=== PATIENT | female | born 1995 | race Caucasian/White ===

== ENCOUNTER 2018-08-31 01:53 | Emergency (ER) | payer SELFPAY ==
--- NOTE | 2018-08-31 02:32 | ED ---
Complex/Multi-Sys Presentation - HPI Summary HPI Summary: Patient is a 23 y/o F presenting to ED with complaints of dehydration, dizziness , nausea, and SOB. She has been drinking alcohol tonight. Patient's friends, who are present in the room, state that the patient was sober when they dropped her off at 2100 08/30/18. Last drink is reported to have been 2.5 hours ago, patient reported that she drank alcohol by herself. She notes that she has had around 13-14 drinks tonight. Dizziness is characterized as a light-headedness. Patient reports that she was SOB since midnight until 0200, no longer SOB. She denies vomiting, falls, and LOC. Patient had been nauseous earlier but not at present. On triage, pain is denied, nothing is noted to aggravate/alleviate Sx. Home medications and allergies are reviewed. - History Of Current Complaint Chief Complaint: EDSubstanceAbuse Time Seen by Provider: 08/31/18 02:21 Hx Obtained From: Patient Onset/Duration: Lasting Hours, Still Present - dehydration, alcohol intox, Resolved - SOB, nausea Timing: Constant - dehydration, Intermittent, Lasting: - SOB, nausea Severity Currently: None - pain denied Aggravating Factor(s): nothing Alleviating Factor(s): nothing Associated Signs And Symptoms: Positive: Dizziness, SOB, Nausea, Other - NEGATIVE - FALLS, LOC; POSITIVE - DEHYDRATION, ALCOHOL CONSUMPTION. Negative: Vomiting - Allergies/Home Medications Allergies/Adverse Reactions: Allergies Allergy/AdvReac Type Severity Reaction Status Date / Time Gluten Allergy GI Upset Uncoded 08/31/18 02:05 Home Medications: Home Medications NK [No Home Medications Reported] 08/31/18 [History Confirmed 08/31/18] PMH/Surg Hx/FS Hx/Imm Hx Endocrine/Hematology History: Denies: Hx Diabetes, Hx Thyroid Disease Cardiovascular History: Denies: Hx Hypertension Respiratory History: Denies: Hx Asthma, Hx Chronic Obstructive Pulmonary Disease (COPD) GI History: Denies: Hx Ulcer - Cancer History Cancer Type, Location and Year: denies Infectious Disease History: No Infectious Disease History: Denies: Hx Hepatitis, Hx Human Immunodeficiency Virus (HIV), History Other Infectious Disease, Traveled Outside the [place] in Last 30 Days - Family History Known Family History: Negative: Cardiac Disease, Hypertension, Diabetes - Social History Alcohol Use: Occasionally Substance Use Type: Reports: None Smoking Status (MU): Never Smoked Tobacco Have You Smoked in the Last Year: No Review of Systems Constitutional: Other - POSITIVE - DEHYDRATION, ALCOHOL CONSUMPTION Positive: Shortness Of Breath Positive: Nausea. Negative: Vomiting Musculoskeletal: Other - NEGATIVE - MECHANICAL FALLS Neurological: Other - POSITIVE - DIZZINESS; NEGATIVE - LOC All Other Systems Reviewed And Are Negative: Yes Physical Exam - Summary Physical Exam Summary: VITAL SIGNS: Reviewed. GENERAL: Patient is a well-developed and nourished female who is lying comfortable in the stretcher. Patient is not in any acute respiratory distress. HEAD AND FACE: No signs of trauma. No ecchymosis, hematomas or skull depressions. No sinus tenderness. EYES: PERRLA, EOMI x 2, No injected conjunctiva, no nystagmus. EARS: Hearing grossly intact. Ear canals and tympanic membranes are within normal limits. MOUTH: Oropharynx within normal limits. NECK: Supple, trachea is midline, no adenopathy, no JVD, no carotid bruit, no c- spine tenderness, neck with full ROM CHEST: Symmetric, no tenderness at palpation LUNGS: Clear to auscultation bilaterally. No wheezing or crackles. CVS: Regular rate and rhythm, S1 and S2 present, no murmurs or gallops appreciated. ABDOMEN: Soft, non-tender. No signs of distention. No rebound no guarding, and no masses palpated. Bowel sounds are normal. EXTREMITIES: FROM in all major joints, no edema, no cyanosis or clubbing. NEURO: Alert and oriented x 3. No acute neurological deficits. Speech is normal and follows commands. SKIN: Dry and warm Triage Information Reviewed: Yes Vital Signs On Initial Exam: Initial Vitals Temp Pulse Resp BP Pulse Ox 97.7 F 82 16 134/100 98 08/31/18 01:55 08/31/18 01:55 08/31/18 01:55 08/31/18 01:55 08/31/18 01:55 Vital Signs Reviewed: Yes Diagnostics - Vital Signs Vital Signs Temp Pulse Resp BP Pulse Ox 08/31/18 01:55 97.7 F 82 16 134/100 98 - Laboratory Lab Statement: Any lab studies that have been ordered have been reviewed, and results considered in the medical decision making process. Re-Evaluation - Re-Evaluation First Eval Re-Evaluation Time: 03:05 Comment: Nurse Winters reports that the patients friend had approached her with concern for the patients well-being, stating that she has been experiencing sleep disturbance and has been consuming alcohol daily. Patient is under a lot of stress at college. Patient reported thoughts of self harm, but notes that whenever she has these thoughts she calls her friends who help her. Dr. Nazario discussed these issues with the patient. The patient is agreeable with discharge to home at this time. Complex Multi-Symp Course/Dx Course Of Treatment: Patient is a 23 y/o F presenting to ED with complaints of dehydration, dizziness, nausea, and SOB. She has been drinking alcohol tonight. Patient's friends, who are present in the room, state that the patient was sober when they dropped her off at 2100 08/30/18. Last drink is reported to have been 2.5 hours ago, patient reported that she drank alcohol by herself. She notes that she has had around 13-14 drinks tonight. Dizziness is characterized as a light-headedness. Patient reports that she was SOB since midnight until 0200, no longer SOB. She denies vomiting, falls, and LOC. Patient had been nauseous earlier but not at present. Physical exam was unremarkable. Nurse Vianey reports that the patients friend had approached her with concern for the patients well-being, stating that she has been experiencing sleep disturbance and has been consuming alcohol daily. Patient is under a lot of stress at college. Patient reported thoughts of self harm, but notes that whenever she has these thoughts she calls her friends who help her. Dr. Nazario discussed these issues with the patient. The patient is agreeable with discharge to home at this time. - Diagnoses Provider Diagnoses: Alcohol abuse, Anxiety Discharge - Sign-Out/Discharge Documenting (check all that apply): Patient Departure - discharge Patient Received Moderate/Deep Sedation with Procedure: No - Discharge Plan Condition: Stable Disposition: HOME Patient Education Materials: Abuse of Alcohol (ED), Anxiety (ED) Referrals: Pending Sale To [facility] - [facility] PEREZ [Z.BUSINESS, APPLICATION, OTHER] - 3 Days Additional Instructions: PLEASE RETURN TO THE ED IMMEDIATELY FOR WORSENING OR CONCERNING SYMPTOMS. FOLLOW UP WITH YOUR PRIMARY CARE PHYSICIAN WITHIN THE NEXT THREE DAYS. - Attestation Statements Document Initiated by Scribe: Yes Documenting Scribe: DARREN PEARL Provider For Whom Jabarie is Documenting (Include Credential): MD Jabari RAMOSe Attestation: DARREN Ibarra, scribed for ADDIE NAZARIO MD on 08/31/18 at 0451. Status of Scribe Document: Ready
[2018-08-31 03:25] VITALS: BP 139/70
== END 2018-08-31 03:23 | disposition home or self-care (01) ==
LOC: ED 01:53
DX: F10.10 Alcohol abuse, uncomplicated (principal); F41.9 Anxiety disorder, unspecified
CPT/HCPCS: 99282

== ENCOUNTER → 2018-09-07 01:56 | Emergency (ER) | payer SELFPAY ==
--- NOTE | 2018-09-07 02:49 | ED ---
Psychiatric Complaint - HPI Summary HPI Summary: 23 year old F [place] [facility] [place] by friend with a chief complaint of suicidal ideation since two hours ago. The patient rates the pain 0/10 in severity. Symptoms aggravated by nothing. Symptoms alleviated by nothing. Patient reports ETOH consumption today. Patient states she is not suicidal now. Per friend, [place]. Friend reports that patient has been drinking more alcohol this semester to cope with her suicidal ideation. Patient states she was seen in ED last week. - History Of Current Complaint Chief Complaint: EDMentalHealth Time Seen by Provider: 09/07/18 02:29 Hx Obtained From: Patient, Other: - Friend Onset/Duration: Lasting Hours - 2, Still Present Timing: Constant Severity Currently: None Aggravating Factor(s): Nothing Alleviating Factor(s): Nothing Has Suicidal: Reports: Thoughts - Allergies/Home Medications Allergies/Adverse Reactions: Allergies Allergy/AdvReac Type Severity Reaction Status Date / Time Gluten Allergy GI Upset Uncoded 09/07/18 02:24 PMH/Surg Hx/FS Hx/Imm Hx Previously Healthy: No Endocrine/Hematology History: Denies: Hx Diabetes, Hx Thyroid Disease Cardiovascular History: Denies: Hx Hypertension Respiratory History: Denies: Hx Asthma, Hx Chronic Obstructive Pulmonary Disease (COPD) GI History: Denies: Hx Ulcer Psychiatric History: Reports: Hx Depression - Cancer History Cancer Type, Location and Year: denies - Surgical History Surgery Procedure, Year, and Place: none Infectious Disease History: No Infectious Disease History: Denies: Hx Hepatitis, Hx Human Immunodeficiency Virus (HIV), History Other Infectious Disease, Traveled Outside the [place] in Last 30 Days - Family History Known Family History: Negative: Cardiac Disease, Hypertension, Diabetes - Social History Alcohol Use: Occasionally Hx Substance Use: Yes Substance Use Type: Reports: Marijuana Hx Tobacco Use: No Smoking Status (MU): Never Smoked Tobacco Have You Smoked in the Last Year: No Review of Systems Negative: Fever Positive: Other - suicidal ideation, ETOH consumption All Other Systems Reviewed And Are Negative: Yes Physical Exam - Summary Physical Exam Summary: VITAL SIGNS: Reviewed. GENERAL: Patient is a well-developed and nourished FEMALE who is lying comfortable in the stretcher. Patient is not in any acute respiratory distress. HEAD AND FACE: No signs of trauma. No ecchymosis, hematomas or skull depressions. No sinus tenderness. EYES: PERRLA, EOMI x 2, No injected conjunctiva, no nystagmus. EARS: Hearing grossly intact. Ear canals and tympanic membranes are within normal limits. MOUTH: Oropharynx within normal limits. NECK: Supple, trachea is midline, no adenopathy, no JVD, no carotid bruit, no c- spine tenderness, neck with full ROM CHEST: Symmetric, no tenderness at palpation LUNGS: Clear to auscultation bilaterally. No wheezing or crackles. CVS: Regular rate and rhythm, S1 and S2 present, no murmurs or gallops appreciated. ABDOMEN: Soft, non-tender. No signs of distention. No rebound no guarding, and no masses palpated. Bowel sounds are normal. EXTREMITIES: FROM in all major joints, no edema, no cyanosis or clubbing. NEURO: Alert and oriented x 3. No acute neurological deficits. Speech is normal and follows commands. SKIN: Dry and warm PSYCH: Patient is not suicidal now but was suicidal earlier Triage Information Reviewed: Yes Vital Signs On Initial Exam: Initial Vitals Temp Pulse Resp BP Pulse Ox 97.5 F 96 16 112/87 97 09/07/18 02:15 09/07/18 02:15 09/07/18 02:15 09/07/18 02:15 09/07/18 02:15 Vital Signs Reviewed: Yes Diagnostics - Vital Signs Vital Signs Temp Pulse Resp BP Pulse Ox 09/07/18 02:15 97.5 F 96 16 112/87 97 - Laboratory Result Diagrams: 09/07/18 02:52 09/07/18 02:52 Lab Statement: Any lab studies that have been ordered have been reviewed, and results considered in the medical decision making process. Course/Dx - Course Course Of Treatment: 23 year old F presenting [place] [facility] complains of suicidal ideation since two hours ago. Test results show no significant abnormalities except for alcohol 123. Patient medically cleared for MHE at 0430. The patient will be signed out to Dr. Watts upon shift change, awaiting MHE, pending disposition. - Differential Dx/Clinical Impression Provider Diagnosis: Depression - Physician Notifications Discussed Care Of Patient With: Michael Galicia - Psychiatry Time Discussed With Above Provider: 07:10 Instructed by Provider To: MD Will See In ED Discharge - Sign-Out/Discharge Documenting (check all that apply): Sign-Out Patient Signing out patient TO: Dilshad Watts - Awaiting MHE, pending disposition Patient Received Moderate/Deep Sedation with Procedure: No - Discharge Plan Condition: Stable Disposition: HOME Patient Education Materials: Depression (ED) Referrals: No Primary Care Phys,NOPCP [Primary Care Provider] - - Billing Disposition and Condition Condition: STABLE Disposition: Home - Attestation Statements Document Initiated by Scribe: Yes Documenting Scribe: Tonja Resendez Provider For Whom Scribe is Documenting (Include Credential): Abelino Nazario MD Scribe Attestation: Tonja Ibarra, scribed for Abelino Nazario MD on 09/08/18 at 0645. Scribe Documentation Reviewed: Yes Provider Attestation: The documentation as recorded by the Tonja ashford accurately reflects the service I personally performed and the decisions made by Austin calloway MD Status of Scribe Document: Viewed
[2018-09-07 03:01] LABS: ABS Basophils 0.1 10^3/ul (0-0.2); ABS Lymphocytes 1.9 10^3/ul (1.0-4.8); ABS Monocytes 0.5 10^3/ul (0-0.8); Eosinophil % 0.5 %; Hematocrit 39 % (35-47); Hemoglobin 12.6 g/dL (12.0-16.0); Lymphocyte % 22.7 %; Mean Corpuscular HGB Conc 32 g/dL (31-36); Mean Corpuscular Hemoglobin 26 pg (27-31); Mean Corpuscular Volume 82 fL (80-97); Mean Platelet Volume 8.4 fL (7.4-10.4); Platelet Count 280 10^3/uL (150-450); Red Blood Count 4.77 10^6 /uL (3.70-4.87); Red Cell Distribution Width 17 % (10.5-15); White Blood Count 8.5 10^3/uL (3.5-10.8)
[2018-09-07 03:17] LABS: Acetaminophen < 15 mcg/mL; Alcohol 123 mg/dL (<10); Salicylate < 2.50 mg/dL (<30)
[2018-09-07 03:20] LABS: ALT 17 U/L (7-52); AST 20 U/L (13-39); Albumin 4.6 g/dL (3.2-5.2); Albumin/Globulin Ratio 1.3 (1-3); Alkaline Phosphatase 69 U/L (34-104); Anion Gap 8 mmol/L (2-11); BUN/Creatinine Ratio 13.2 (8-20); Blood Urea Nitrogen 12 mg/dL (6-24); CO2 Carbon Dioxide 27 mmol/L (22-32); Calcium 9.3 mg/dL (8.6-10.3); Chloride 104 mmol/L (101-111); EGFR African American 93.5 (>60); EGFR Non-African American 77.3 (>60); Globulin 3.5 g/dL (2-4); Glucose 112 mg/dL (70-100); Potassium 3.8 mmol/L (3.5-5.0); Sodium 139 mmol/L (135-145); Total Protein 8.1 g/dL (6.4-8.9)
[2018-09-07 03:25] LABS: HCG Pregnancy < 0.60 mIU/mL
[2018-09-07 03:32] LABS: TSH (Thyroid Stimulating Horm) 1.41 mcIU/mL (0.34-5.60)
--- NOTE | 2018-09-07 07:13 | ED ---
Progress - Progress Note Progress Note: Patient was signed out at 07:00, 09/07/[address] Abelino Nazario to Dr. Dilshad Watts pending a MHE. - Consult/PCP Time Called: 04:50 Course/Dx - Course Course Of Treatment: 23 year old F presenting to [facility] complains of suicidal ideation since two hours ago. Test results show no significant abnormalities except for alcohol 123. Patient medically cleared for MHE at 0430. The patient will be signed out to Dr. Watts upon shift change, awaiting MHE, pending disposition. Patient was signed out at 07:00, 09/07/[address] Abelino Nazario to Dr. Dilshad Watts pending a MHE. After a MHE, Dr. Galicia discharged the patient home with alcohol induced mood disorder. - Diagnoses Provider Diagnoses: Depression Discharge - Sign-Out/Discharge Documenting (check all that apply): Patient Departure - D/C home, Receiving Sign -Out Receiving patient FROM: Abelino Nazario - Pending MHE Patient Received Moderate/Deep Sedation with Procedure: No - Discharge Plan Condition: Stable Disposition: HOME Patient Education Materials: Depression (ED) Referrals: No Primary Care Phys,NOPCP [Primary Care Provider] - - Attestation Statements Document Initiated by Scribe: Yes Documenting Scribe: Jd Gaona Provider For Whom Scribe is Documenting (Include Credential): Dilshad Watts MD Scribe Attestation: Jd Ibarra, scribed for Dilshad Watts MD on 09/07/18 at [id number]. Status of Scribe Document: Ready
[2018-09-07 09:35] LABS: Urine Appearance Clear; Urine Bilirubin Negative (Negative); Urine Blood Negative (Negative); Urine Color Yellow; Urine Glucose Negative (Negative); Urine Ketones Negative (Negative); Urine Nitrite Negative (Negative); Urine Protein Negative (Negative); Urine Specific Gravity 1.011 (1.010-1.030); Urine Urobilinogen Negative (Negative)
[2018-09-07 09:57] LABS: Urine Benzodiazepine Screen None Detected (None Detect); Urine Opiates Screen None Detected (None Detect)
--- NOTE | 2018-09-07 10:02 | PN ---
ED Flex Patient Progress Note Date of Service: 09/07/18 Subjective: This is a 23 year-old F who is pending admission to [facility] / transfer to another psychiatric facility / discharge to home / or being observed secondary to SI and ETOH intoxication. Pt. examined in room 5 at 1000. She is resting comfortably without complaints. She questions when she will have her MHE. Objective: Vitals: Most recent vital signs documented below. General NAD, Alert and oriented x3. Laboratory: Current laboratory results documented below. Assessment: depression Plan: Pending MHE. Vital Signs Temp Pulse Resp BP Pulse Ox 98.3 F 100 18 111/62 100 09/07/18 07:35 09/07/18 07:35 09/07/18 07:35 09/07/18 07:35 09/07/18 07:35 Lab Results - Entire Visit 09/07/18 09/07/18 09/07/18 09:25 09:25 02:52 WBC RBC Hgb Hct MCV MCH MCHC RDW Plt Count MPV Neut % (Auto) Lymph % (Auto) Giles % (Auto) Eos % (Auto) Baso % (Auto) Absolute Neuts (auto) Absolute Lymphs (auto) Absolute Monos (auto) Absolute Eos (auto) Absolute Basos (auto) Absolute Nucleated RBC Nucleated RBC % Sodium 139 Potassium 3.8 Chloride 104 Carbon Dioxide 27 Anion Gap 8 BUN 12 Creatinine 0.91 Est GFR ( Amer) 93.5 Est GFR (Non-Af Amer) 77.3 BUN/Creatinine Ratio 13.2 Glucose 112 H Calcium 9.3 Total Bilirubin 0.30 AST 20 ALT 17 Alkaline Phosphatase 69 Total Protein 8.1 Albumin 4.6 Globulin 3.5 Albumin/Globulin Ratio 1.3 TSH 1.41 Beta HCG, Quant < 0.60 Urine Color Yellow Urine Appearance Clear Urine pH 6.0 Ur Specific [place] 1.011 Urine Protein Negative Urine Ketones Negative Urine Blood Negative Urine Nitrate Negative Urine Bilirubin Negative Urine Urobilinogen Negative Ur Leukocyte Esterase Negative Urine Glucose Negative Salicylates < 2.50 Urine Opiates Screen None detected Acetaminophen < 15 Ur Barbiturates Screen None detected Ur Phencyclidine Scrn None detected Ur Amphetamines Screen None detected U Benzodiazepines Scrn None detected Urine Cocaine Screen None detected U Cannabinoids Screen Presumptive positive A Serum Alcohol 123 H 09/07/18 02:52 WBC 8.5 RBC 4.77 Hgb 12.6 Hct 39 MCV 82 MCH 26 L MCHC 32 RDW 17 H Plt Count 280 MPV 8.4 Neut % (Auto) 70.7 Lymph % (Auto) 22.7 Giles % (Auto) 5.4 Eos % (Auto) 0.5 Baso % (Auto) 0.7 Absolute Neuts (auto) 6.0 Absolute Lymphs (auto) 1.9 Absolute Monos (auto) 0.5 Absolute Eos (auto) 0.0 Absolute Basos (auto) 0.1 Absolute Nucleated RBC 0.0 Nucleated RBC % 0.0 Sodium Potassium Chloride Carbon Dioxide Anion Gap BUN Creatinine Est GFR ( Amer) Est GFR (Non-Af Amer) BUN/Creatinine Ratio Glucose Calcium Total Bilirubin AST ALT Alkaline Phosphatase Total Protein Albumin Globulin Albumin/Globulin Ratio TSH Beta HCG, Quant Urine Color Urine Appearance Urine pH Ur Specific [place] Urine Protein Urine Ketones Urine Blood Urine Nitrate Urine Bilirubin Urine Urobilinogen Ur Leukocyte Esterase Urine Glucose Salicylates Urine Opiates Screen Acetaminophen Ur Barbiturates Screen Ur Phencyclidine Scrn Ur Amphetamines Screen U Benzodiazepines Scrn Urine Cocaine Screen U Cannabinoids Screen Serum Alcohol
[2018-09-07 11:45] VITALS: BP 98/56
--- NOTE | 2018-09-07 11:46 | PN ---
Progress Note - Progress Note Date of Service: 09/07/18 Note: S: 23 y.o. 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 Patient now sober. On exam she has a bright affect and she appears embarrassed about the episode. She states she often goes to that particular bridge to mourn the loss of a friend from suicide after he jumped from that location to his approximately 13 months ago. Parents are unreachable as they are traveling [place] in [place]. The patient is future-oriented, stating that she has a great deal of academic work to complete before graduation next week. She self-identifies as strongly [employer] and that suicide is against her church beliefs. She welcomes assistance from the [employer] [facility] service in getting her some accommodations to catch up. Patient has appointment with therapist at [facility] this afternoon at 13:00. Steadfastly denies SI. O: attractive; somewhat overweight young female in blue scrubs; friendly, smiling; normal rate/tone/volume to speech; euthymic with full affect ; denies SI or HI; awake and alert A/P: Alcohol induced mood disorder: patient advised to abstain from alcohol but declines substance abuse treatment. We have spoken to Crisis Management at [employer] and they will provide assistance. Will d/c to outpatient services. Patient to f/u at [facility] this afternoon at 13:00.
== END | disposition home or self-care (01) ==
LOC: ED 01:56
DX: F32.9 Major depressive disorder, single episode, unspecified (principal); F10.10 Alcohol abuse, uncomplicated; K90.41 Non-celiac gluten sensitivity
CPT/HCPCS: 36415; 80053; 80307; 80320; 80329; 81003; 84443; 84702; 85025; 99284; G0480